=== PATIENT | female | born 1995 | race African-American/Black ===

== ENCOUNTER 2019-03-10 21:37 | Emergency (ER) | payer BC ==
[2019-03-10 21:58] VITALS: BP 112/74; PULSE 115; TEMP 99.8; BMI 22.4
--- NOTE | 2019-03-10 22:13 | PDOC ---
History of Present Illness - General Chief Complaint: Asthma Stated Complaint: SHORT OF BREATH Time Seen by Provider: 03/10/19 21:47 History Source: Patient Exam Limitations: No Limitations - History of Present Illness Initial Comments: 03/10/19 22:10 This is a 23-year-old female who comes in complaining of pleuritic chest pain and cough x1-1/2 days. Patient has a history of asthma and took a breathing treatment prior to coming in which did help some. Patient had a low-grade fever of 99.1 prior to arrival. Patient is otherwise healthy and denies any other complaints. Allergies: as per nursing notes Past Medical History: As per HPI Social history: Lives with family. No smoking. No alcohol. No illicit drugs. Surgical history: None General: No fevers or chills, no weakness, no weight loss HEENT: No change in vision. No sore throat,. No ear pain CardioVascular: no chest discomfort. No shortness of breath Respiratory:No cough, or wheezing. Gastrointestinal: no nausea, vomiting, diarrhea or constipation, No rectal bleeding Genitourinary: No dysuria, hematuria, or frequency Musculoskeletal: No joint or muscle pain or swelling Neurologic: No headache, vertigo, dizziness or loss of consciousness Psychiatric: nor depression Skin: No rashes or easy bruising Endocrine: no increased thirst or abnormal weight change Allergic: no skin or latex allergy All other systems reviewed and normal Exam: General: Well-nourished well-developed individual, no acute distress HEENT: Throat: Normal, tonsils normal, no erythema or exudate Neck: Supple, no meningeal signs, no lymphadenopathy Eyes::Pupils equal reactive and round, extraocular motion intact Chest: Pain reproduced on palpation. Cardiac: S1-S2 normal, regular rate and rhythm, no murmurs rubs or gallops Respiratory: Lungs clear to auscultation bilateral Abdomen: Soft, nondistended, normal bowel sounds, there is no tenderness on palpation diffusely Extremities: Warm, dry, no cyanosis, clubbing, or edema Skin: No rashes Neuro: Alert and oriented x3, CN II - XII intact, nonfocal exam with normal strength, normal sensation, normal reflexes, normal gait, Psych: Normal mood and affect Assessment and plan: This is a 23-year-old female who comes in complaining of pleuritic type chest pain and cough. Patient had a chest x-ray that was negative for any acute pathology. Patient given naproxen for the pain and discharged home. Patient has a primary care doctor to follow-up with Past History - Past Medical History Allergies/Adverse Reactions: Allergies Allergy/AdvReac Type Severity Reaction Status Date / Time Penicillins Allergy Unknown Verified 03/10/19 21:40 Home Medications: Ambulatory Orders Albuterol Sulfate Inhaler - [Ventolin Hfa Inhaler -] 2 inh PO Q6H PRN 03/10/19 Asthma: Yes COPD: No - Immunization History Immunization Up to Date: Yes - Psycho Social/Smoking Cessation Hx Smoking History: Never smoked Hx Alcohol Use: No Drug/Substance Use Hx: No *Physical Exam - Vital Signs Last Vital Signs Temp Pulse Resp BP Pulse Ox 99.8 F H 115 H 22 H 112/74 99 03/10/19 21:39 03/10/19 21:39 03/10/19 21:39 03/10/19 21:39 03/10/19 21:39 ED Treatment Course - RADIOLOGY Radiology Studies Ordered: Category Date Time Status CHEST PA & LAT [RAD] Stat Radiology 03/10/19 22:10 Ordered Discharge - Discharge Information Problems reviewed: Yes Clinical Impression/Diagnosis: Viral upper respiratory infection, Pleuritic chest pain Condition: Good Disposition: HOME - Admission No - Follow up/Referral - Patient Discharge Instructions Additional Instructions: For the pain take naproxen 1 tablet twice a day with food do not take on an empty stomach. You had an x-ray that was negative for any evidence of infection or anything you would need an antibiotic for your pain is most likely due to some inflammation within the lungs that an anti-inflammatory such as naproxen will be helpful. Return to the emergency department immediately with ANY new, persistent or worsening symptoms. Continue any medications as previously prescribed by your physician. You should follow up with your primary doctor as soon as possible regarding today's emergency department visit. . Please make sure your doctor reviews the results of your emergency evaluation. Thank you for coming to the Emergency Department today for your care. It was a pleasure to see you today. Please note that your evaluation is INCOMPLETE until you follow-up with your doctor. - Post Discharge Activity Work/Back to School Note: Back to Work
== END 2019-03-10 22:34 | disposition home or self-care (01) ==
LOC: FER 21:37
DX: R07.89 Other chest pain (principal); J06.9 Acute upper respiratory infection, unspecified; Z88.0 Allergy status to penicillin
CPT/HCPCS: 71046-TC-FY; 99281-25